=== PATIENT | female | born 1980 | race Caucasian/White ===

== ENCOUNTER → 2022-09-21 | Outpatient (CLI) | payer BC ==
--- NOTE | 2022-09-21 13:08 | Diagnostic Imaging Report ---
INDICATION: Left foot pain. AP, oblique and lateral views of the left foot are obtained. FINDINGS: There is mild plantar calcaneal spurring. No acute fracture or dislocation is identified. No abnormal lytic or sclerotic focus is seen, and there is no radiopaque foreign body. IMPRESSION: No acute abnormality. Dictated by: Dictated on workstation # [id number]
== END ==
LOC: RAD FS 10:38
PROVIDERS: ATTEND Family Medicine
DX: Z00.00 Encounter for general adult medical examination without abnormal findings (principal); E03.9 Hypothyroidism, unspecified; M79.672 Pain in left foot
CPT/HCPCS: 73630